=== PATIENT | female | born 1965 | race Caucasian/White ===

== ENCOUNTER 2018-02-03 07:48 | Emergency (ER) | payer MEDICARE, MEDICAID ==
[2018-02-03] MEDS ORDERED: KETOROLAC 60 MG/2 ML VIAL IM STA (09:00)
--- NOTE | 2018-02-03 10:34 | ED Physician Documentation ---
PD HPI BACK PAIN - Stated complaint Stated Complaint: NECK/BACK/HIP PX - Chief complaint Chief Complaint: Back Pain - History obtained from History obtained from: Patient - History of Present Illness Timing - onset: Chronic Timing - duration: Days (Worse for the past three days.) Location: Lower, Other (neck) Quality: Pain, Spasm Associated symptoms: No: Fever, Weakness, Numbness, Incontinent of urine Similar symptoms before: Diagnosis (DJD) - Additional information Additional information: The patient is a 52-year-old female who presents with neck and lower back pain. She reports that her back pain is chronic but has been worse over the past 3 days since she has been homeless and having to carry her belongings with her. She was staying with her daughter, but without going into detail she states that she is not able to stay there any longer. [facility] the past 3 nights, but has to carry her belongings in two backpacks during the day. In addition she complains of bifrontal headache. She denies fever, numbness or weakness, urinary incontinence, or any symptoms that are different from the pain that she has had intermittently for years. In addition to chronic recurrent back pain she also has a history of gastric bypass, pancreatitis, and diverticulitis. Review of Systems Constitutional: denies: Fever Ears: denies: Tinnitus/ringing Nose: denies: Congestion Throat: denies: Sore throat Cardiac: denies: Chest pain / pressure Respiratory: denies: Dyspnea, Cough GI: denies: Abdominal Pain, Nausea, Vomiting : denies: Dysuria Skin: denies: Rash Musculoskeletal: reports: Neck pain, Back pain. denies: Extremity pain Neurologic: reports: Headache. denies: Focal weakness, Numbness PD PAST MEDICAL HISTORY - Past Medical History Endocrine/Autoimmune: None GI: GERD, Pancreatitis, Diverticulitis Musculoskeletal: Chronic back pain - Past Surgical History Past Surgical History: Yes General: Bowel surgery, Gastric surgery Ortho: Arthroscopic surgery /[employer]: Breast implants - Present Medications Home Medications: Ambulatory Orders Medication Instructions Recorded Confirmed Famotidine [Pepcid] 1 tab DAILY 11/28/15 11/28/15 HYDROcod/ACETAM 5/325 [[place] 5/325] 0 mg PRN 11/28/15 Hydrocodone/Acetaminophen [[place] 1 each PO Q6H PRN #25 tablet 11/28/15 5-325 Tablet] Methocarbamol [Robaxin] 500 mg PO Q6H PRN #25 tablet 11/28/15 Naproxen 375 mg PO BID #20 tablet 11/28/15 Cyclobenzaprine [Flexeril] 10 mg PO TID PRN #20 tablet 02/03/18 Lidocaine Patch 5% [Lidoderm Patch] 1 each TOP DAILY #14 patch 02/03/18 - Allergies Allergies/Adverse Reactions: Allergies Allergy/AdvReac Type Severity Reaction Status Date / Time hydromorphone HCl * Allergy Anaphylaxis Verified 11/28/15 14:18 [From Dilaudid] ondansetron HCl * Allergy Unknown Verified 11/28/15 14:18 [From Zofran (as hydrochloride)] - Social History Does the pt smoke?: Yes Smoking Status: Current every day smoker Does the pt drink ETOH?: Yes Does the pt have substance abuse?: No - Immunizations Immunizations: TDAP >10years/unknown PD ED PE NORMAL - Vitals Vital signs reviewed: Yes (normal) - General General: Alert and oriented X 3 - HEENT HEENT: Atraumatic, EOMI, Pharynx benign - Neck Neck: Supple, no meningeal sign, No adenopathy, No JVD, Other (There is mild tenderness to palpation in the paracervical musculature bilaterally, without bony tenderness to palpation along the spinous processes. She is able to turn her head from side to side although full range of motion exacerbates her symptoms.) - Cardiac Cardiac: RRR - Respiratory Respiratory: No respiratory distress, Clear bilaterally - Abdomen Abdomen: Soft, Non tender - Back Back: No CVA TTP, Other (There is tenderness palpation in the left paralumbar musculature, extending over the left sacroiliac joint. There is no tenderness to palpation over the spinous processes.) - Derm Derm: No rash - Extremities Extremities: No edema, No calf tenderness / cord, Other (Straight leg raise test is negative bilaterally.) - Neuro Neuro: Alert and oriented X 3, No motor deficit, No sensory deficit, Other (Deep tendon reflexes are 2+ and equal bilaterally in the patellar and Achilles tendons.) Results - Vitals Vitals: Oxygen O2 Source Room air PD MEDICAL DECISION MAKING - ED course Complexity details: reviewed old records, re-evaluated patient, considered differential, d/w patient, d/w data processing systems consultant ED course: The patient's presentation is most consistent with acute exacerbation of chronic recurrent back pain. There is no clinical evidence to suggest epidural abscess, cauda equina syndrome, or spinal stenosis. Treatment in the emergency department included administration of ketorolac 60 mg IM. I consulted the medical scientist, who evaluated her in the emergency department regarding her homeless status and availability of potential services. The patient has apparently already availed herself of services that are available to her. She requested something stronger for pain, and specifically preferred narcotic medication. I advised her that I would not be prescribing narcotic medication for this type of chronic, recurrent pain. She is being discharged with prescription for Lidoderm patch and for Flexeril. I discussed with her potentially worrisome signs or symptoms that should prompt reevaluation in the emergency department. - Consults Consults: Discussed case with (Margaux HORNE), Request data processing systems consultant evaluate patient (Land InspectorMargaux) - Sepsis Event Vital Signs: Oxygen O2 Source Room air Departure - Departure Disposition: 01 Home, Self Care Clinical Impression: Neck pain Back pain Qualifiers: Back pain location: low back pain Chronicity: unspecified Back pain laterality: left Sciatica presence: without sciatica Qualified Code(s): M54.5 - Low back pain Instructions: ED Neck Back Pain General Follow-Up: [facility] [Provider Group] Prescriptions: Cyclobenzaprine [Flexeril] 10 mg PO TID PRN #20 tablet PRN Reason: Spasms Lidocaine Patch 5% [Lidoderm Patch] 1 each TOP DAILY #14 patch Comments: Use the Lidoderm patch as prescribed if needed for back pain. You can use Flexeril as prescribed if needed for muscle spasms. Apply ice pack to the sore areas intermittently for the next 3 days. Follow-up with your primary physician as scheduled. Return to the emergency department if you develop increasing pain, or otherwise worsening symptoms. Discharge Date/Time: 02/03/18 10:55
[2018-02-03 10:44] VITALS: BP 106/64
== END 2018-02-03 10:55 | disposition home or self-care (01) ==
LOC: ED 07:48
DX: M54.2 Cervicalgia (principal); G89.29 Other chronic pain; M54.5 Low back pain; F17.200 Nicotine dependence, unspecified, uncomplicated
CPT/HCPCS: 96372; 99283